=== PATIENT | male | born 1965 | race Caucasian/White ===

== ENCOUNTER 2021-05-31 19:31 | Emergency (ER) | payer MEDICAID ==
[2021-05-31] MEDS ORDERED: Ciprofloxacin 500 MG Tab ONE (21:00)
== END 2021-05-31 21:20 | disposition home or self-care (01) ==
LOC: LB.ED 19:31
DX: N39.0 Urinary tract infection, site not specified (principal); I10 Essential (primary) hypertension; Z88.5 Allergy status to narcotic agent; Z88.0 Allergy status to penicillin; Z88.8 Allergy status to other drugs, medicaments and biological substances; Z20.822 Contact with and (suspected) exposure to COVID-19
CPT/HCPCS: 36415; 80053; 81001; 83605; 85025; 87086; 87186; 87804; 87804-59; 99283; A9270-GY; U0002